=== PATIENT | male | born 1970 | race Caucasian/White ===

== ENCOUNTER → 2021-08-23 03:56 | Outpatient (CLI) | payer OTHER, SELFPAY ==
[2021-08-28 22:33] LABS: SARS-CoV-2 RNA PCR Negative
== END ==
PROVIDERS: PCP Family Medicine Adolescent Medicine; Visit Provider Physician Assistant
DX: R05.8 Other specified cough (principal); R09.81 Nasal congestion; Z20.822 Contact with and (suspected) exposure to COVID-19
CPT/HCPCS: C9803; U0003; U0005

== ENCOUNTER 2023-08-29 02:22 | Day surgery (SDC) | payer OTHER, SELFPAY ==
[2023-08-14 09:15] VITALS: BMI 26.5
--- NOTE | 2023-08-27 08:50 | SUR.PREOP ---
Patient called regarding upcoming procedure. Reviewed preop instructions, appointment times, and procedure prep.
--- NOTE | 2023-08-28 09:37 | P.PNAN_ITS ---
Anes - Initial Pre Proc Eval Procedure: Operation Date: 08/29/23 11:00 Proposed Procedures p Colonoscopy - Иван Yancey MD Date/Time: 08/28/23 09:37 Surgeon: Иван Yancey MD Pre Op Diagnosis: hx of colon polyps Patient Data Age: 53 Gender: M Height: 1.78 m Weight: 84 kg Allergies Allergy/AdvReac Type Severity Reaction Status Date / Time Sulfa (Sulfonamide Allergy Intermediate Dyspnea Verified 08/29/23 10:21 Antibiotics) hydrochlorothiazide AdvReac Intermediate muscle Verified 08/29/23 10:21 cramps pseudoephedrine AdvReac Intermediate Tachycardia Verified 08/29/23 10:21 Home Medications Medication Instructions Recorded Confirmed Type aspirin 81 mg tablet,delayed 81 mg PO DAILY 11/16/19 08/14/23 History release (Adult Aspirin Regimen) lisinopril 20 mg tablet 20 mg PO DAILY #90 tabs 04/29/23 08/14/23 Rx lorazepam 1 mg tablet 1 mg PO BID PRN anxiety #180 tabs 04/29/23 08/14/23 Rx metoprolol succinate 50 mg 50 mg PO DAILY #90 tabs 04/29/23 08/29/23 Rx tablet,extended release 24 hr omeprazole 20 mg capsule,delayed 20 mg PO DAILY #90 caps 04/29/23 08/14/23 Rx release Patient hx anesthesia problems: none Family hx anesthesia problems: none Results Review: All pre-operative results and documents have been reviewed as part of the pre- operative evaluation. [facility] Past Medical History Medical History (Updated 04/29/23 @ 13:08 by Henrique Hill MD) Abnormal colonoscopy 12/23 polyp Repeat 12/28 Headache Hypertension Surgical History Surgical History (Updated 10/02/21 @ 16:14 by Henrique Hill MD) History of appendectomy 08/20 Family History Family History (Updated 10/02/21 @ 16:09 by Henrique Hill MD) Father Heart disease COPD (chronic obstructive pulmonary disease) Social History Social History (Updated 08/29/23 @ 10:35 by Jose Prince DO) Smoking packs per day: 1 Smoking cigarettes per day: 20.0 Years smoked: 30 Smoking pack-years: 30.00 Smoking status: Current every day smoker Tobacco type: cigarettes Second hand tobacco smoke exposure: Yes Alcohol intake: current Alcohol use details: rarely Substance use: current Substance use type: marijuana Living arrangements: with family Occupation/Education: occupation Gender identity (if verbalized by the patient): Male Sexual Orientation (if Verbalized by the Patient): Straight or Heterosexual Spiritual care concerns: No Agree to blood products: Yes Anes - Eval Final PreProcedure Day of Procedure 08/28/23 09:37 Patient weight: overweight Heart: regular rate and rhythm Lungs: clear to auscultation Airway: Mallampati scale class II Neurological: alert and oriented Last oral intake: >/= 8 hours ASA classification: III Emergent: no Anesthetic plan: proceed Anesthesia type and monitoring: general GIVS and standard monitoring Results Review: All pre-operative results and documents have been reviewed as part of the pre- operative evaluation. Informed Consent: The patient's anesthetic plan and its attendant risks and benefits were discussed with the patient/family/POA. Questions were solicited and answers provided to the satisfaction of the patient/family/POA.
[2023-08-29 10:22] VITALS: BP 145/92; PULSE 74; RESP 18; TEMP 36.1; O2SAT 98
[2023-08-29] MEDS: LACTATED RINGERS 1,000 ML 150 ML IV CONT (10:29)
--- NOTE | 2023-08-29 10:59 | PM.HPGS ---
History of Present Illness History of Present Illness Consent: Risks, benefits, and alternatives have been discussed and questions answered. Patient agrees to proceed with procedure. Chief complaint: hx of colon polyps Narrative: Lito Franks is a 53 year old male Presents for colonoscopy. Patient has a history of adenomatous colon polyp removed from the colon [address] Lopez. Patient's current weight appetite and bowel movements are normal. Patient presents for neoplasia screening colonoscopy. Review of Systems Review of Systems: Review of systems noncontributory. [facility] Past Medical History Medical History (Updated 08/29/23 @ 11:00 by Иван Yancey MD) Abnormal colonoscopy 12/23 polyp Repeat 12/28 Headache Hypertension Surgical History Surgical History (Updated 10/02/21 @ 16:14 by Henrique Hill MD) History of appendectomy 08/20 Family History Family History (Updated 10/02/21 @ 16:09 by Henrique Hill MD) Father Heart disease COPD (chronic obstructive pulmonary disease) Social History Social History (Updated 08/29/23 @ 10:35 by Jose Prince DO) Smoking packs per day: 1 Smoking cigarettes per day: 20.0 Years smoked: 30 Smoking pack-years: 30.00 Smoking status: Current every day smoker Tobacco type: cigarettes Second hand tobacco smoke exposure: Yes Alcohol intake: current Alcohol use details: rarely Substance use: current Substance use type: marijuana Living arrangements: with family Occupation/Education: occupation Gender identity (if verbalized by the patient): Male Sexual Orientation (if Verbalized by the Patient): Straight or Heterosexual Spiritual care concerns: No Agree to blood products: Yes Meds Home Medications and Allergies Home Medications Medication Instructions Recorded Confirmed Type aspirin 81 mg tablet,delayed 81 mg PO DAILY 11/16/19 08/14/23 History release (Adult Aspirin Regimen) lisinopril 20 mg tablet 20 mg PO DAILY #90 tabs 04/29/23 08/14/23 Rx lorazepam 1 mg tablet 1 mg PO BID PRN anxiety #180 tabs 04/29/23 08/14/23 Rx metoprolol succinate 50 mg 50 mg PO DAILY #90 tabs 04/29/23 08/29/23 Rx tablet,extended release 24 hr omeprazole 20 mg capsule,delayed 20 mg PO DAILY #90 caps 04/29/23 08/14/23 Rx release Allergies Allergy/AdvReac Type Severity Reaction Status Date / Time Sulfa (Sulfonamide Allergy Intermediate Dyspnea Verified 08/29/23 10:21 Antibiotics) hydrochlorothiazide AdvReac Intermediate muscle Verified 08/29/23 10:21 cramps pseudoephedrine AdvReac Intermediate Tachycardia Verified 08/29/23 10:21 Vital Signs Vital Signs - 24 hr 08/29/23 10:22 Temperature 97 F L Pulse Rate 74 Respiratory Rate 18 Blood Pressure 145/92 H Pulse Oximetry 98 Oxygen Delivery Room Air Exam Narrative: Physical exam reveals patient to be alert. Vital signs stable. HEENT exam is unremarkable. Patient is anicteric. Lungs are clear to auscultation and percussion. Heart is without murmur or extra sounds. Abdomen bowel sounds are present soft nontender with no organomegaly. Digital external rectal exam is normal. Assessment and Plan Assessment and plan (1) History of colon polyps: Code(s): Z86.010 - Personal history of colonic polyps Status: Acute Assessment and Plan: Patient has a history of colon polyp removed in 2017. Plan for surveillance colonoscopy at 5 year intervals.
[2023-08-29 11:30] VITALS: BP 182/91; PULSE 79; RESP 19; O2SAT 98
[2023-08-29] MEDS: hydrALAZINE HCL 20 MG/ML VIAL 10 MG IV PUSH (11:36)
[2023-08-29 11:40] VITALS: BP 147/101; PULSE 73; RESP 25; O2SAT 99
[2023-08-29 11:50] VITALS: BP 147/90; PULSE 65; RESP 18; O2SAT 100
== END 2023-08-29 11:56 | disposition home or self-care (01) ==
PROVIDERS: PCP Family Medicine Adolescent Medicine; Visit Provider Internal Medicine Gastroenterology
PROC: 0DJD8ZZ Inspection of Lower Intestinal Tract, Via Natural or Artificial Opening Endoscopic (ICD-10-PCS; CPT 45378; principal; 2023-08-29 11:00)
DX: Z12.11 Encounter for screening for malignant neoplasm of colon (principal); K64.8 Other hemorrhoids; K57.30 Diverticulosis of large intestine without perforation or abscess without bleeding; Z86.010 Personal history of colon polyps; I10 Essential (primary) hypertension; Z79.82 Long term (current) use of aspirin; F17.210 Nicotine dependence, cigarettes, uncomplicated; F12.90 Cannabis use, unspecified, uncomplicated
CPT/HCPCS: 45378; J0360; J2704; J7120

== ENCOUNTER 2024-05-02 15:09 | Emergency (ER) | payer OTHER, SELFPAY | END 2024-05-02 16:59 | disposition left against medical advice (07) | LOC: ANHED 15:54 | PROVIDERS: PCP Family Medicine Adolescent Medicine | DX: I10 Essential (primary) hypertension (principal) | CPT/HCPCS: 99199 ==